=== PATIENT | male | born 1990 | race Caucasian/White ===

== ENCOUNTER 2023-08-24 10:15 | Emergency (ER) | payer SELFPAY ==
[2023-08-24] MEDS ORDERED: cefTRIAXone (ROCEPHIN) 1 GM VIAL ONE (10:51)
[2023-08-26 14:45] LABS: Chlam.trachomatis by PCR,Urine DETECTED (NotDetected); GC N.gonorrhoeae PCR,UrineVOID Not Detected (NotDetected)
== END 2023-08-24 11:10 | disposition home or self-care (01) ==
LOC: NAV ERS 10:15
DX: N34.2 Other urethritis (principal)
CPT/HCPCS: 87491; 87591; 96372; 99283; J0696